=== PATIENT | male | born 1985 | race Caucasian/White ===

== ENCOUNTER 2021-07-24 09:25 | Emergency (ER) | payer SELFPAY ==
[2021-07-24 09:26] VITALS: BP 142/97; PULSE 101; RESP 16; TEMP 36.2; O2SAT 99; BMI 35.6
--- NOTE | 2021-07-24 09:49 | EDS_ITS ---
HPI HPI - URI History of Present Illness Chief Complaint: Cold Sx Informant: patient Onset/Context/Timing Onset: Yesterday Context: Gradual Onset Timing: Continuous Quality: throbbing Location: right face/head Current Severity: Moderate Maximum Severity: Moderate Worsened by: - (nothing) Relieved by: - (nothing) Associated Symptoms Associated Symptoms: Positive for Nasal Congestion, Headache and Sinus Pressure; Negative for Myalgias, Nausea, Vomiting, Diarrhea, Shortness of Breath, Chest Pain and Nonproductive cough Narrative Narrative: Patient presenting with what feels like a sinus infection. He has had rhinorrhea and congestion intermittently with this, pain and pressure in his right face and retro-orbital without vision changes, and right frontotemporal headache. He states the mucus is thick but not discolored. He denies sore throat or odynophagia, cough, myalgias, fevers or chills. He was not vaccinated against Covid. He thinks he may have had it early 2019 but he was never tested for antibodies. 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 ROS ROS ED Constitutional Constitutional ED: Denies chills or fever(s) Eyes Eyes: Denies change in vision or diplopia ENT ENT ED: Reports ear pain right (Without changes in hearing), nasal congestion, post nasal drip and rhinorrhea; Denies sore throat Cardiovascular Cardiovascular: Denies chest pain or palpitations Respiratory/Chest Respiratory/Chest: Denies cough or dyspnea Gastrointestinal Gastrointestinal: Denies abdominal pain, diarrhea, nausea or vomiting Musculoskeletal Musculoskeletal: Denies arthralgias, back pain, myalgias or neck pain Integumentary Denies abscess or rash Neurologic Neurologic: Reports headache(s); Denies paresthesias or weakness PFSH PFSH Medical History no medical history no medical history Home Medications albuterol sulfate [Ventolin HFA] 1 - 2 puff INHALATION Q4H PRN PRN #1 inhaler 11/19/15 [Rx Last Taken Unknown] prednisone 60 mg PO DAILY #15 tablet 11/19/15 [Rx Last Taken Unknown] amoxicillin-pot clavulanate 875 mg PO Q12H #14 tablet 07/24/21 [Rx Last Taken Unknown] Allergy/AdvReac Type Severity Reaction Status Date / Time strawberry [[place]] Allergy Unknown Verified 11/19/15 19:16 Social History Smoking Status: Current every day smoker tobacco type: cigarettes EXAM Physical Exam Const Vital Signs: 07/24/21 09:26 07/24/21 09:31 07/24/21 09:32 Temperature 97.1 F L Temperature Source Oral Pulse Rate 101 H Respiratory Rate 16 Respiratory Effort Normal Non-Labored Normal Non-Labored Respiratory Pattern Normal Blood Pressure 142/97 H Blood Pressure Mean 112 Pulse Ox 99 Oxygen Delivery Method Room Air Positive well nourished and well developed General Appearance ED: well developed and NAD HEENT Reports TM's clear HEENT Narrative: Posterior oropharynx without erythema or exudates. Right tonsil is more prominent than the left, patient states he was told that in the past. It is not bothering him. No stridor. Uvula midline. There is right nasal turbinate edema without purulent discharge. Tenderness in the right maxillary sinus and in the ethmoids. No facial asymmetry, swelling, erythema. No parotid tenderness. normocephalic and atraumatic External Ear: external ears normal Tympanic Membrane ED: Yes TM's clear bilateral Eyes PERRL and EOMs intact bilaterally Neck no lymphadenopathy, supple and no meningeal signs Resp normal respiratory effort and clear to auscultation bilaterally Cardio no murmurs Rate: regular rate; Negative for tachycardic Rhythm: regular rhythm Neuro oriented x3, CN's II-XII intact bilaterally, no sensory deficits noted and gait normal Sensorium / Orientation: alert Motor Exam: strength 5/5 throughout Psych mental status grossly normal and thought process normal Skin Lesions: no lesions Rashes: no rashes MDM MDM MDM Narrative Medical decision making narrative: Ran a rapid Covid, it returned negative. As I discussed with the patient, I understand he does not get this very often, etiologies here include viral and bacterial, he wants an antibiotic and uncomfor table trying that, he also wants a work note for today. I advise using oxymetazoline nasal spray as well as needed. Discharge Plan Triage Chief Complaint: Cold Sx ED Provider: Raman Vidal Dx/Rx/DC Orders Clinical Impression: Sinusitis, acute Instructions: ED Sinusitis (Antibiotic Treatment) Prescriptions: New amoxicillin-pot clavulanate [amoxicillin-pot clavulanate] 875 MG tablet 875 mg PO Q12H Qty: 14 RF: 0 No Action prednisone 20 MG tablet 60 mg PO DAILY Qty: 15 RF: 0 albuterol sulfate [Ventolin HFA] 1 INHALER inhaler 1 - 2 puff inhalation Q4H PRN PRN (Reason: Wheezing) Qty: 1 RF: 0 Stand Alone Forms: ED Work / School Excuse Primary Care Provider: Care Physician,No Primary Referrals: Mariana Werner DO [STAFF PHYSICIAN] - 1 Week if not improving Care Physician,No Primary [Primary Care Provider] - Activity Restrictions/Additional Instructions: Your rapid Covid test is negative and it is likely accurate. Consider getting oxymetazoline nasal spray [id number], using 1 spray inhaled each nostril every 12 hours as needed, no more than 3 days at a time. Disposition Disposition: Home, Self Care
[2021-07-24 10:45] VITALS: BP 140/65; PULSE 88; RESP 18; TEMP 37.2; O2SAT 99
== END 2021-07-24 10:46 | disposition home or self-care (01) ==
PROVIDERS: Emergency Provider Emergency Medicine
DX: J01.90 Acute sinusitis, unspecified (principal); F17.210 Nicotine dependence, cigarettes, uncomplicated
CPT/HCPCS: 87426; 99283

== ENCOUNTER 2022-06-30 20:23 | Emergency (ER) | payer OTHER, SELFPAY ==
[2022-06-30 20:24] VITALS: BP 117/95; PULSE 127; RESP 18; TEMP 37; O2SAT 97; BMI 33.2
--- NOTE | 2022-06-30 20:50 | EDS_ITS ---
HPI HPI - URI History of Present Illness Chief Complaint: Sore Throat Narrative Narrative: Patient with past medical history of previous strep pharyngitis presents with sore throat that he has had since yesterday. States it feels very similar to when he has had strep throat and he states he gets it frequently, 1x3 times within 1 year. He states his glands are swollen and it hurts more when he swallows. No true fevers or chills, but he has body aches. He is usually treated with amoxicillin. He is also using a vape in order to help him stop smoking. He presents because her symptoms began last night with a scratchy throat and sore throat worse with swallowing which became much worse today. ROS ROS ED ROS Narrative Constitutional: No fever, no chills. HEENT: Positive sore throat worse with swallowing. No neck pain. No loss of vision. No rhinorrhea. Swollen lymph nodes in neck. Cardiovascular: No chest pain. No palpitations. No pedal edema. Respiratory: No cough, no shortness of breath. Abdominal: No abdominal pain. No nausea. No vomiting. Genitourinary: No dysuria. No hematuria. Musculoskeletal: Diffuse myalgias. No arthralgias. Neurologic: No headaches. No dizziness. No lightheadedness. Skin: No rash. No change in color. Psychiatric: No depression. No anxiety. PFSH PFSH Medical History no medical history Home Medications albuterol sulfate 90 mcg/actuation aerosol inhaler (Ventolin HFA) 1 - 2 puff inhalation Q4H PRN PRN Wheezing ##1 11/19/15 [Rx Last Taken Unknown] prednisone 20 mg tablet 60 mg PO DAILY ##15 11/19/15 [Rx Last Taken Unknown] amoxicillin 875 mg-potassium clavulanate 125 mg tablet 875 mg PO Q12H #14 TABLETS 07/24/21 [Rx Last Taken Unknown] amoxicillin 500 mg capsule 500 mg PO BID #20 caps 06/30/22 [Rx Last Taken Unknown] Allergy/AdvReac Type Severity Reaction Status Date / Time strawberry [[place]] Allergy Unknown Verified 06/30/22 20:27 Surgical History no surgical history Social History Smoking Status: Current every day smoker tobacco type: e-cigarettes EXAM Physical Exam Narrative Exam Narrative: Afebrile. Vital signs noted. HEENT: Normocephalic. Atraumatic. PERRL, EOMI. Neck soft and supple. No point tenderness or step off. Neck soft and supple with shotty lymphadenopathy in the anterior cervical chain. No meningismus. Positive pharyngeal erythema. Airway patent. No drooling or trismus. Questionable exudate on tonsils. Cardiovascular: Regular rate and rhythm with intermittent tachycardia. No murmurs, rubs, or gallops appreciated. Respiratory: No tachypnea. Lungs clear to auscultation bilaterally. Gastrointestinal: Abdomen soft, nontender, with normoactive bowel sounds. No rebound or guarding. Neurological: Awake. Alert. Nonfocal, nonlateralizing. Skin: No rash. Normal color. No pallor. Musculoskeletal: No pedal edema. Full range of motion extremities. Const Vital Signs: 06/30/22 20:24 Temperature 98.6 F Temperature Source Temporal Pulse Rate 127 H Respiratory Rate 18 Blood Pressure 117/95 H Blood Pressure Mean 102 Pulse Ox 97 Oxygen Delivery Method Room Air MDM MDM MDM Narrative Medical decision making narrative: I will presume that this is strep pharyngitis as he has had it frequently in the past. He was given a dose of 8 mg of Decadron and his first dose of amoxicillin here in the emergency department. I wrote him a prescription for amoxicillin to take for the next 10 days, 500 mg twice a day. Treatment will be otherwise symptomatic with [id number] analgesics and plenty of oral fluids. He was told to quit smoking/vaping. He was given a note to be off work for today and for tomorrow until he can have 24 hours of antibiotics. Return instructions to the emergency department were reviewed. I feel he can be discharged safely home with follow-up. Disposition is discharged in stable condition. Discharge Plan Triage Chief Complaint: Sore Throat ED Provider: Yasmani Barboza Dx/Rx/DC Orders Clinical Impression: Pharyngitis, streptococcal, acute, Myalgia Instructions: ED Pharyngitis, Strep (Presumed) Prescriptions: New amoxicillin 500 mg capsule 500 mg PO BID Qty: 20 0RF No Action prednisone 20 MG tablet 60 mg PO DAILY Qty: 15 0RF albuterol sulfate [Ventolin HFA] 1 INHALER inhaler 1 - 2 puff inhalation Q4H PRN PRN (Reason: Wheezing) Qty: 1 0RF amoxicillin-pot clavulanate [amoxicillin-pot clavulanate] 875 MG tablet 875 mg PO Q12H Qty: 14 0RF Stand Alone Forms: ED Work / School Excuse Primary Care Provider: Care Physician,No Primary Referrals: Care Physician,No Primary [Primary Care Provider] - Disposition Disposition: Home, Self Care
[2022-06-30] MEDS: dexAMETHasone 4 MG Tablet 8 MG PO (21:00)
[2022-06-30] MEDS: AMOXICILLIN 500 MG CAPSULE PO (21:00)
[2022-06-30 21:02] VITALS: BP 134/78; PULSE 72; RESP 16; TEMP 37.2; O2SAT 99
== END 2022-06-30 21:02 | disposition home or self-care (01) ==
LOC: ED 20:51
PROVIDERS: Emergency Provider Emergency Medicine; Visit Provider Emergency Medicine
DX: J02.0 Streptococcal pharyngitis (principal); Z87.891 Personal history of nicotine dependence; M79.10 Myalgia, unspecified site
CPT/HCPCS: 99283

== ENCOUNTER 2022-10-06 18:03 | Emergency (ER) | payer OTHER, SELFPAY ==
[2022-10-06 18:05] VITALS: BP 141/92; PULSE 93; RESP 14; TEMP 36.2; O2SAT 97; BMI 37.0
== END 2022-10-06 21:10 | disposition left against medical advice (07) ==
LOC: ED 21:15
DX: Z53.21 Procedure and treatment not carried out due to patient leaving prior to being seen by health care provider (principal)

== ENCOUNTER 2022-12-06 15:35 | Emergency (ER) | payer OTHER, MEDICAID, SELFPAY ==
[2022-12-06 15:35] VITALS: BP 143/89; PULSE 89; RESP 14; TEMP 36.9; O2SAT 97; BMI 34.8
--- NOTE | 2022-12-06 15:49 | CT_ITS ---
STUDY: CT ABDOMEN AND PELVIS WITH CONTRAST REASON FOR EXAM: Male, 37 years old. RLQ pain RADIATION DOSAGE (If Supplied By Facility): CTDIvol = ( 16.76 ) mGy, DLP = ( 1297.70 ) mGycm TECHNIQUE: Transaxial images were obtained from the dome of the diaphragm to the symphysis pubis without oral contrast. IV 100mL Isovue-370 was administered. Sagittal and coronal images were reconstructed. Individualized dose optimization techniques were used for this CT. COMPARISON: None. FINDINGS: The visualized lung bases are unremarkable. The visualized portions of the heart are within normal limits. Normal liver. Normal gallbladder and extrahepatic biliary system. Normal spleen. Normal pancreas. Normal bilateral adrenal glands. Normal right kidney. Normal left kidney. Normal visualized stomach. Normal small intestine. Sigmoid diverticulosis. No definite evidence of acute inflammation. Normal colon. The appendix is visualized and appears normal. Normal abdominal aorta. Normal inferior vena cava. Normal retroperitoneum. Normal urinary bladder. Fat-containing bilateral inguinal hernias There is a small umbilical hernia containing fat. Slight anterior wedging T10 and T11. CT/Abdomen/Pelvis W IV Cont ONLY IMPRESSION: No acute disease. Electronically Signed: Willy Cárdenas MD at 17:51 EST ,
--- NOTE | 2022-12-06 15:50 | EX.ED.DYSGE1 ---
HPI History of Present Illness Chief Complaint: Abd Pain Informant: patient Onset/Context/Timing Onset: Today Context: Gradual Onset Current Severity: Moderate Maximum Severity: Moderate Narrative Narrative: Patient presents secondary to right lower quadrant abdominal pain with nausea and vomiting. He states pain started around 3 AM this morning and started vomiting by 6 AM. He denies diarrhea or urinary symptoms. He denies fever. Denies known ill contacts, however states he just got back from [place]. [facility] Medical History (Updated 12/06/22 @ 17:[address] Liudmila Meléndez MD) GERD (gastroesophageal reflux disease) Hypercholesterolemia Substance abuse Home Medications omeprazole 20 mg capsule,delayed release 20 mg PO DAILY 12/06/22 [History Last Taken Unknown] ondansetron 4 mg disintegrating tablet 4 mg PO Q8H PRN PRN Nausea #10 tabs 12/06/22 [Rx Last Taken Unknown] Allergy/AdvReac Type Severity Reaction Status Date / Time strawberry [[place]] Allergy Unknown Verified 12/06/22 15:37 Surgical History no surgical history no surgical history Social History Smoking Status: Current every day smoker tobacco type: e-cigarettes ROS ROS ED Constitutional Constitutional ED: Denies chills or fever(s) Eyes Eyes: Denies change in vision or discharge from eye(s) ENT ENT ED: Denies discharge from eye(s), rhinorrhea or sore throat Cardiovascular Cardiovascular: Denies chest pain or palpitations Respiratory/Chest Respiratory/Chest: Denies cough or dyspnea Gastrointestinal Gastrointestinal: Reports abdominal pain, nausea and vomiting; Denies diarrhea Genitourinary Genitourinary ED: Denies dysuria or hematuria Musculoskeletal Musculoskeletal: Denies back pain or extremity pain Integumentary Denies Abrasions or rash Neurologic Neurologic: Denies headache(s) or weakness Psychiatric Psychiatric: Denies anxiety or depression Allergic/Immunologic Allergic/Immunologic ED: Denies lip swelling or urticaria EXAM Physical Exam Const Vital Signs: 12/06/22 15:35 Temperature 98.5 F Temperature Source Temporal Pulse Rate 89 Respiratory Rate 14 Blood Pressure 143/89 H Blood Pressure Mean 107 Pulse Ox 97 Oxygen Delivery Method Room Air Positive well nourished and well developed General Appearance ED: well developed HEENT Reports normocephalic and head/scalp atraumatic Eyes PERRL and EOMs intact bilaterally Neck supple Chest Wall inspection of chest normal and palpation of chest normal Resp normal respiratory effort and clear to auscultation bilaterally Cardio regular rate and regular rhythm GI GI Narrative: Abdomen soft with focal tenderness in the right lower quadrant. Voluntary guarding noted. Hypoactive but present bowel sounds are noted. Palpation: soft Extremity normal to inspection Neuro oriented x3 and no sensory deficits noted Sensorium / Orientation: alert Motor Exam: strength 5/5 throughout Psych mental status grossly normal Skin no rashes or lesions noted MDM MDM MDM Narrative Medical decision making narrative: Patient was given IV fluids and Zofran. Lab work obtained to evaluate for leukocytosis, anemia, electrolyte derangement. CT scan of the abdomen pelvis with IV contrast obtained to rule out appendicitis. Lab Data Attestation: I reviewed the patient's lab results. Labs: Laboratory Results - last 24 hr 12/06/22 12/06/22 15:36 15:36 WBC 9.5 RBC 5.86 Hgb 16.4 Hct 51.0 MCV 87.0 MCH 28.0 MCHC 32.2 RDW Std Deviation 45.9 H RDW Coeff of Fernando 14.6 Plt Count 256 MPV 9.9 Immature Gran % (Auto) 0.200 Neut % (Auto) 63.4 Lymph % (Auto) 29.7 [place] % (Auto) 5.6 Eos % (Auto) 0.5 Baso % (Auto) 0.6 Absolute Neuts (auto) 6.0 Absolute Lymphs (auto) 2.83 Nucleated RBC % 0 Sodium 137 Potassium 4.1 Chloride 102 Carbon Dioxide 28.0 Anion Gap 7 BUN 20 H Creatinine 1.02 Estim Creat Clear Calc 103.56 Est GFR (MDRD) Af Amer 104 Est GFR (MDRD) Non-Af 86 BUN/Creatinine Ratio 19.6 Glucose 141 H Calcium 9.0 Total Bilirubin 0.70 Direct Bilirubin 0.17 AST 20 ALT 25 Alkaline Phosphatase 75 Total Protein 7.7 Albumin 3.5 Globulin 4.2 Radiography Diagnostic Testing: Clinical Impression(s) from Imaging Studies Abdomen/Pelvis CT 12/06/22 15:49 IMPRESSION: No acute disease. Electronically Signed: Willy Cárdenas MD at 17:51 EST Reading Location ID and State: [address] [place] [address] , Service support , Differential Diagnosis Abdominal Pain: Appendicitis Reason(s) appendicitis less likely: Positive for other (Normal appendix on imaging studies) and Bowel obstruction Reason(s) bowel obstruction less likely: no evidence of bowel obstruction on imaging studies Treatment and Re-Evaluation :: On repeat evaluation patient resting comfortably. Nausea improved. Lab work is unremarkable. CT scan of the abdomen and pelvis reveals normal appendix with no acute findings noted. Patient has just now given us a urine sample. I will call him if there are any abnormalities but not make him wait here in the emergency room for the results. Prescription for Zofran will be sent to the pharmacy for him. He is given a work note for today and tomorrow. Discharge Plan Triage Chief Complaint: Abd Pain ED Provider: Liudmila Meléndez Dx/Rx/DC Orders Clinical Impression: Gastroenteritis Instructions: ED Gastroenteritis, Viral (Adult) Prescriptions: New ondansetron 4 mg tablet,disintegrating 4 mg PO Q8H PRN PRN (Reason: Nausea) Qty: 10 0RF No Action omeprazole 20 mg Capsule,Delayed Release(Dr/Ec) 20 mg PO DAILY Stand Alone Forms: ED Work / School Excuse Primary Care Provider: Care Physician,No Primary Referrals: Surya Sylvester MD [Med Staff - Active Staff] - As Needed Care Physician,No Primary [Primary Care Provider] - Disposition Disposition: Home, Self Care
[2022-12-06] MEDS: Ondansetron 4 MG/2 ML Vial IV (16:06)
[2022-12-06] MEDS: 0.9% Normal Saline 1,000 ML 150 ML IV (16:08)
[2022-12-06 16:12] LABS: Absolute Lymphocyte Count 2.83 X10^3/uL (0.83-4.51); Basophil# 0.06 X10^3/uL; Basophil% 0.6 % (0-1); Eosinophil# 0.05 X10^3/uL; Eosinophils% 0.5 % (0-5); Hemoglobin 16.4 g/dL (13.0-16.5); Lymphocyte # 2.83 X10^3/ul (0.83-4.51); Lymphocyte % 29.7 % (19-41); Mean Corp Hgb Conc 32.2 g/dL (32-36); Mean Platelet Vol. 9.9 fl (6.2-12.0); Monocyte# 0.53 X10^3/uL; Monocyte% 5.6 % (0-10); NRBC Flagged by Analyzer 0 % (0-5); Neutrophil # 6.04 X10^3/uL (2.7-7.7); Neutrophil % 63.4 % (47-70); Platelet Count 256 K/mm3 (150-450); RBC Distribution Width CV 14.6 % (11.6-14.6); RBC Distribution Width SD 45.9 fl (35.1-43.9); Red Blood Count 5.86 M/mm3 (4.6-6.2); White Blood Count 9.5 K/mm3 (4.4-11.0)
[2022-12-06 16:25] LABS: AST(SGOT) 20 U/L (15-37); Alanine Aminotransfer ALT/SGPT 25 U/L (16-61); Albumin, Serum 3.5 g/dL (3.2-5.0); Alkaline Phosphatase 75 U/L (45-117); Anion Gap 7 (5-15); BUN 20 mg/dL (7-18); BUN/Creat Ratio 19.6 RATIO (10-20); Bilirubin, Direct 0.17 mg/dL (0.00-0.30); Chloride 102 mmol/L (98-107); Creatinine, Serum 1.02 mg/dL (0.70-1.30); EST Glomerular Filtration Rate 86 mL/min (>60); Est Glom Filt Rate - Afr Amer 104 mL/min (>60); Estimated Creatinine Clearance 103.56 ml/min; Globulin 4.2 g/dL (2.2-4.2); Glucose 141 mg/dL (74-106); Potassium 4.1 mmol/L (3.5-5.1); Protein, Total 7.7 g/dL (6.4-8.2); Sodium Level 137 mmol/L (136-145)
[2022-12-06 18:01] LABS: Bacteria 0 SEEN /hpf (None Seen); Mucous, Urine 0 SEEN /hpf (<or=2+); Red Blood Cells-Urine 0 SEEN /hpf (0-5); Squamous Epithelial Cells - UA 0 SEEN /hpf (0-5); White Blood Cells 0 SEEN /hpf (0-5)
[2022-12-06 18:12] LABS: Color, Urine Yellow (Yellow); Glucose, Dipstick Normal (Normal); Ketone-Dipstick Negative (Negative); Leukocyte Esterase-Dipstick Negative /ul (Negative); Nitrite-Dipstick Negative (Negative); Occult Blood-Urine Negative /ul (Negative); Protein-Dipstick 30 mg/dl (Negative); Urine Bilirubin Dipstick Negative (Negative); Urine Clarity Clear (Clear); Urine Urobilinogen Normal (Normal)
== END 2022-12-06 18:05 | disposition home or self-care (01) ==
PROVIDERS: Emergency Provider Emergency Medicine; Visit Provider Emergency Medicine
DX: K52.9 Noninfective gastroenteritis and colitis, unspecified (principal); F17.210 Nicotine dependence, cigarettes, uncomplicated; E78.00 Pure hypercholesterolemia, unspecified; K21.9 Gastro-esophageal reflux disease without esophagitis
CPT/HCPCS: 74177; 80048; 80076; 81001; 85025; 96361; 96374; 99283; J7030; Q9967; A4216; J2405